=== PATIENT | female | born 1975 | race Two or more races ===

== ENCOUNTER 2024-03-30 13:13 | Emergency (ER) | payer OTHER ==
[~2024-03-30] VITALS: Ht 165.1 cm; Wt 90.7 kg
[2024-03-30] MEDS ORDERED: LEVOTHYROXINE25 MCG (15:16)
[2024-03-30] MEDS ORDERED: MECLIZINE HCL 25 MG TABLET PO STA (16:51)
== END 2024-03-30 20:22 | disposition home or self-care (01) ==
LOC: ER 13:15
DX: S09.8XXA Other specified injuries of head, initial encounter (principal); X58.XXXA Exposure to other specified factors, initial encounter; Y93.89 Activity, other specified; Y92.89 Other specified places as the place of occurrence of the external cause; Y99.8 Other external cause status; R42 Dizziness and giddiness

== ENCOUNTER 2024-04-04 10:49 | Outpatient (CLI) | payer OTHER ==
[~2024-04-04 10:49] MED LIST: LEVOTHYROXINE25 MCG
== END 2024-04-04 10:57 | disposition home or self-care (01) ==
LOC: TOM 10:49
DX: S06.0X0A Concussion without loss of consciousness, initial encounter (principal)